=== PATIENT | male | born 1960 | race Caucasian/White ===

== ENCOUNTER 2016-10-28 10:22 | Emergency (ER) | payer MEDICARE ==
[~2016-10-28] VITALS: Ht 180.3 cm; Wt 66.1 kg
[~2016-10-28 10:22] MED LIST: ASCORBIC ACID100 MG PO; AUGMENTIN875 MG PO; B COMPLETE1 EACH PO; CENTRUM SILVER1 EAC3 PO; GINKGO BILOBA120 MG PO; GINSENG100 M2 PO; SPIRIVA RESPIMAT4 GM IH; VENTOLIN HFA18 GM IH; VITAMIN D400 UNIT PO; VITAMIN E100 UNIT PO
[2016-10-28 11:13] LABS: BASOPHIL COUNT 0.1 K/uL (0-0.1); EOSINOPHIL (%) 3.2 % (0-5); EOSINOPHIL COUNT 0.5 K/uL (0-0.3); HEMATOCRIT 53.1 % (38.0-50.0); IMMATURE GRANULOCYTE (%) 0.5 % (0.0-0.7); IMMATURE GRANULOCYTE COUNT 0.1 K/uL; INSTRUMENT ABS NEUTROPHIL CT 11.2 K/uL; LYMPHOCYTE COUNT 2.1 K/uL (1.0-2.8); MCH 29.3 PG (29.0-34.0); MCHC 32.8 G/DL (30.0-36.0); MCV 89.5 FL (86-99); MEAN PLAT.VOLUME 9.5 uM^3 (9.0-12.4); MONOCYTE (%) 7.9 % (3-12); MONOCYTE COUNT 1.2 K/uL (0-0.8); NEUTROPHIL (%) 73.9 % (45-76); NEUTROPHIL COUNT 11.2 K/uL (1.8-6.4); PLATELET COUNT 343 K/uL (156-360); RBC DIS.WIDTH-CV 12.5 % (11.8-14.6); RBC DIS.WIDTH-SD 41.4 % (39-53); RED BLOOD COUNT 5.93 M/uL (4.00-5.50); WHITE BLOOD COUNT 15.1 K/uL (4.1-10.2)
[2016-10-28 11:25] LABS: CHLORIDE 105 mEq/L (99-109); SODIUM 143 mEq/L (136-147)
[2016-10-28 11:27] LABS: GLUCOSE 99 mg/dL (70-99)
[2016-10-28 11:28] LABS: ANION GAP 12 MEQ/L (2-14)
[2016-10-28 11:29] LABS: TOTAL BILIRUBIN 0.3 mg/dL (0.0-1.0)
[2016-10-28 11:30] LABS: ALKALINE PHOSPHATASE 73 IU/L (3-129)
[2016-10-28 11:31] LABS: GFR ESTIMATE (CALCULATED) > 59 mL/min/
[2016-10-28 11:32] LABS: UREA NITROGEN (BUN) 12 mg/dL (9-23)
[2016-10-28] MEDS ORDERED: TYLENOL WITH C1 EACH PO (15:05)
[2016-10-28 15:13] VITALS: BP 118/69
[2016-11-01] MEDS ORDERED: ULTRAM50 MG PO (09:42)
[2016-11-01] MEDS ORDERED: TYLENOL EXTRA500 MG PO (09:44)
== END 2016-10-28 15:14 | disposition home or self-care (01) ==
LOC: EME 10:22
PROVIDERS: Emergency Medicine
DX: R91.8 Other nonspecific abnormal finding of lung field (principal); C78.01 Secondary malignant neoplasm of right lung; C78.02 Secondary malignant neoplasm of left lung; R22.1 Localized swelling, mass and lump, neck; J44.9 Chronic obstructive pulmonary disease, unspecified; F17.200 Nicotine dependence, unspecified, uncomplicated
CPT/HCPCS: 71020; 71250; 80053; 85025; 99281; 99284

== ENCOUNTER 2016-11-07 08:36 | Day surgery (SDC) | payer MEDICARE ==
[~2016-11-07] VITALS: Ht 180.3 cm; Wt 65.0 kg
[~2016-11-07 08:36] MED LIST changes: +TYLENOL EXTRA500 MG PO; +TYLENOL WITH C1 EACH PO; +ULTRAM50 MG PO
[2016-11-07 09:04] VITALS: BP 143/85
[2016-11-07 10:05] LABS: BASOPHIL COUNT 0.1 K/uL (0-0.1); EOSINOPHIL (%) 5.4 % (0-5); EOSINOPHIL COUNT 0.8 K/uL (0-0.3); IMMATURE GRANULOCYTE (%) 0.3 % (0.0-0.7); IMMATURE GRANULOCYTE COUNT 0.1 K/uL; LYMPHOCYTE COUNT 2.3 K/uL (1.0-2.8); MCH 29.1 PG (29.0-34.0); MCHC 32.9 G/DL (30.0-36.0); MCV 88.6 FL (86-99); MEAN PLAT.VOLUME 9.8 uM^3 (9.0-12.4); MONOCYTE (%) 8.8 % (3-12); MONOCYTE COUNT 1.3 K/uL (0-0.8); NEUTROPHIL (%) 69.3 % (45-76); PLATELET COUNT 422 K/uL (156-360); RBC DIS.WIDTH-CV 12.4 % (11.8-14.6); RBC DIS.WIDTH-SD 41.1 % (39-53); RED BLOOD COUNT 5.87 M/uL (4.00-5.50); WHITE BLOOD COUNT 14.4 K/uL (4.1-10.2)
[2016-11-07 10:17] LABS: ALKALINE PHOSPHATASE 60 IU/L (3-129); ANION GAP 10 MEQ/L (2-14); CHLORIDE 105 MEQ/L (99-109); GFR ESTIMATE (CALCULATED) > 59 mL/min/; GLUCOSE 90 mg/dL (70-99); POTASSIUM 3.9 MEQ/L (3.7-5.4); SAMPLE HEMOLYSIS CHECK 0; SAMPLE ICTERIC CHECK 0; SAMPLE LIPEMIA CHECK 0; SODIUM 141 MEQ/L (136-147); TOTAL BILIRUBIN 0.4 MG/DL (0.0-1.0); UREA NITROGEN (BUN) 13 mg/dL (9-23)
[2016-11-07 11:40] LABS: INTER. NORMALIZED RATIO 1.1; PROTHROMBIN TIME 10.8 (9.2-11.2); PTT 36.2 (25-32)
[2016-11-07] MEDS ORDERED: HYDROCODON-ACE1 EAC7 PO (12:19)
[2016-11-07] MEDS ORDERED: COLACE100 MG PO (12:19)
[2016-11-07 13:03] LABS: POINT-OF-CARE METER ID UU14174212; POINT-OF-CARE USER ID ADMSLT55
[2016-11-07 15:00] VITALS: BP 130/70
[2016-11-07 15:42] VITALS: BP 137/71
== END 2016-11-07 15:50 | disposition home or self-care (01) ==
LOC: SDC 08:36
PROVIDERS: Thoracic Surgery (Cardiothoracic Vascular Surgery)
PROC: 07B10ZX Excision of Right Neck Lymphatic, Open Approach, Diagnostic (ICD-10-PCS; principal; 2016-11-07)
DX: C77.0 Secondary and unspecified malignant neoplasm of lymph nodes of head, face and neck (principal); F17.210 Nicotine dependence, cigarettes, uncomplicated; J44.9 Chronic obstructive pulmonary disease, unspecified; Z87.898 Personal history of other specified conditions; Z82.49 Family history of ischemic heart disease and other diseases of the circulatory system
CPT/HCPCS: 80053; 82948; 85025; 85610; 85730; 88305; 88341 TC; 88342 TC; J0690; J1100; J1170; J2250; J2405; J2765; J3010

== ENCOUNTER 2016-12-18 11:03 | Inpatient (IN) | payer MEDICARE ==
[~2016-12-18] VITALS: Ht 180.3 cm; Wt 62.6 kg
[~2016-12-18 11:03] MED LIST changes: +COLACE100 MG PO; +HYDROCODON-ACE1 EAC7 PO
[2016-12-18 11:55] LABS: HEMATOCRIT 56.2 % (38.0-50.0); MCH 28.7 PG (29.0-34.0); MCHC 32.2 G/DL (30.0-36.0); MCV 89.1 FL (86-99); MEAN PLAT.VOLUME 9.4 uM^3 (9.0-12.4); PLATELET COUNT 393 K/uL (156-360); RBC DIS.WIDTH-CV 12.7 % (11.8-14.6); RBC DIS.WIDTH-SD 41.3 % (39-53); RED BLOOD COUNT 6.31 M/uL (4.00-5.50); WHITE BLOOD COUNT 6.1 K/uL (4.1-10.2)
[2016-12-18 11:56] LABS: CHLORIDE 102 mEq/L (99-109); POTASSIUM 4.3 mEq/L (3.7-5.4); SODIUM 140 mEq/L (136-147)
[2016-12-18 11:58] LABS: GLUCOSE 99 mg/dL (70-99)
[2016-12-18 11:59] LABS: ANION GAP 15 MEQ/L (2-14)
[2016-12-18 12:01] LABS: GFR ESTIMATE (CALCULATED) > 59 mL/min/
[2016-12-18 12:02] LABS: UREA NITROGEN (BUN) 11 mg/dL (9-23)
[2016-12-18 12:06] LABS: TROP-I INTERPRETATION NEGATIVE; TROPONIN-I 0.04 ng/mL (0.0-0.30)
[2016-12-18] MEDS ORDERED: COLACE100 MG PO (12:44)
[2016-12-18] MEDS ORDERED: NICODERM CQ1 EAC2 TD (12:44)
[2016-12-18] MEDS ORDERED: XARELTO20 MG PO (12:45)
[2016-12-18] MEDS ORDERED: DUONEB 2.5-0.5 M3 ML AEROSOL (12:45)
[2016-12-18] MEDS ORDERED: XANAX0.5 MG PO (12:51)
[2016-12-18] MEDS ORDERED: ARYMO ER15 MG PO (12:52)
[2016-12-18] MEDS ORDERED: SPIRIVA1 INHALATI IH (12:53)
[2016-12-18] MEDS ORDERED: CEFDINIR300 MG PO (12:54)
[2016-12-18] MEDS ORDERED: LO-DOSE ASPIRIN81 M2 PO (12:55)
[2016-12-18] MEDS ORDERED: ZITHROMAX250 MG PO (12:55)
[2016-12-18] MEDS ORDERED: HYDROCODONE CO120 ML PO (12:56)
[2016-12-18 20:18] VITALS: BP 109/52
[2016-12-18 20:45] VITALS: BP 119/73
[2016-12-18 21:00] VITALS: BP 105/50
[2016-12-18 22:00] VITALS: BP 97/62
[2016-12-18 22:12] LABS: METH RESISTANT S AUREUS PCR NEGATIVE (NEGATIVE)
[2016-12-18 22:15] LABS: PROBE CHECK PASS; SPECIMEN PROCESSING CONTROL PASS
[2016-12-18 22:49] LABS: BASE EXCESS -1.6 mEq/L (-3 to +3); BICARBONATE 21.9 mEq/L (22-26); CARBOXY HGB 2.2 % (0-5); METHEMOGLOBIN 1.8 % (0-1.5); PCO2 33 mm Hg (35-45); PO2 52 mm Hg (80-100); pH 7.43 (7.35-7.45)
[2016-12-18 22:50] LABS: COMMENTS - BLOOD GASES A+C+; DEVICE NCHIGH FLOW; O2 FLOW 8 L/MIN; SITE LR; TOTAL RESP RATE 18 resp/min
[2016-12-18 23:00] VITALS: BP 111/61
[2016-12-19] VITALS (22 sets, daily range): BP systolic 84–130; BP diastolic 41–77
[2016-12-19 04:52] LABS: EOSINOPHIL (%) 1.9 % (0-5); EOSINOPHIL COUNT 0.4 K/uL (0-0.3); HEMATOCRIT 43.2 % (38.0-50.0); IMMATURE GRANULOCYTE (%) 0.6 % (0.0-0.7); IMMATURE GRANULOCYTE COUNT 0.1 K/uL; INSTRUMENT ABS NEUTROPHIL CT 14.8 K/uL; LYMPHOCYTE COUNT 1.8 K/uL (1.0-2.8); MCH 28.6 PG (29.0-34.0); MCHC 32.6 G/DL (30.0-36.0); MCV 87.6 FL (86-99); MEAN PLAT.VOLUME 9.8 uM^3 (9.0-12.4); MONOCYTE (%) 9.4 % (3-12); MONOCYTE COUNT 1.8 K/uL (0-0.8); NEUTROPHIL (%) 78.3 % (45-76); NEUTROPHIL COUNT 14.8 K/uL (1.8-6.4); PLATELET COUNT 356 K/uL (156-360); RBC DIS.WIDTH-SD 41.6 % (39-53); RED BLOOD COUNT 4.93 M/uL (4.00-5.50); WHITE BLOOD COUNT 18.9 K/uL (4.1-10.2)
[2016-12-19 05:06] LABS: CHLORIDE 110 mEq/L (99-109); POTASSIUM 4.2 mEq/L (3.7-5.4); SODIUM 140 mEq/L (136-147)
[2016-12-19 05:08] LABS: GLUCOSE 93 mg/dL (70-99)
[2016-12-19 05:10] LABS: ANION GAP 8 MEQ/L (2-14)
[2016-12-19 05:12] LABS: GFR ESTIMATE (CALCULATED) > 59 mL/min/
[2016-12-19 05:13] LABS: UREA NITROGEN (BUN) 9 mg/dL (9-23)
[2016-12-20] VITALS (17 sets, daily range): BP systolic 94–155; BP diastolic 46–81
[2016-12-20 06:39] LABS: HEMATOCRIT 43.3 % (38.0-50.0); MCH 28.2 PG (29.0-34.0); MCHC 31.6 G/DL (30.0-36.0); MCV 89.3 FL (86-99); MEAN PLAT.VOLUME 10.2 uM^3 (9.0-12.4); PLATELET COUNT 356 K/uL (156-360); RBC DIS.WIDTH-CV 12.7 % (11.8-14.6); RED BLOOD COUNT 4.85 M/uL (4.00-5.50); WHITE BLOOD COUNT 17.7 K/uL (4.1-10.2)
[2016-12-20 06:50] LABS: ANION GAP 8 MEQ/L (2-14); CHLORIDE 110 MEQ/L (99-109); GFR ESTIMATE (CALCULATED) > 59 mL/min/; GLUCOSE 110 mg/dL (70-99); POTASSIUM 3.5 MEQ/L (3.7-5.4); SAMPLE HEMOLYSIS CHECK 0; SAMPLE ICTERIC CHECK 0; SAMPLE LIPEMIA CHECK 0; SODIUM 141 MEQ/L (136-147); UREA NITROGEN (BUN) 8 mg/dL (9-23)
[2016-12-20 08:20] LABS: MAGNESIUM 1.7 mg/dl (1.3-2.7)
[2016-12-21] VITALS: BP 99/70
[2016-12-21 04:00] VITALS: BP 83/54
== END 2016-12-21 06:36 | DRG 871 ==
LOC: EME → EDBD 11:03 → EME 11:03 → EDOF 18:31 → 4WEST 18:31
PROVIDERS: Emergency Medicine; Internal Medicine Nephrology; Internal Medicine Pulmonary Disease; Surgery Surgical Critical Care
PROC: 05HM33Z Insertion of Infusion Device into Right Internal Jugular Vein, Percutaneous Approach (ICD-10-PCS; principal; 2016-12-18)
DX: A41.9 Sepsis, unspecified organism (principal); J18.9 Pneumonia, unspecified organism; I95.9 Hypotension, unspecified; C80.1 Malignant (primary) neoplasm, unspecified; J90 Pleural effusion, not elsewhere classified; M54.5 Low back pain; R05 Cough; F17.200 Nicotine dependence, unspecified, uncomplicated; R00.0 Tachycardia, unspecified; C77.1 Secondary and unspecified malignant neoplasm of intrathoracic lymph nodes; J44.9 Chronic obstructive pulmonary disease, unspecified; I63.9 Cerebral infarction, unspecified; J96.91 Respiratory failure, unspecified with hypoxia; D68.59 Other primary thrombophilia; E87.6 Hypokalemia; E83.42 Hypomagnesemia; F41.9 Anxiety disorder, unspecified; D64.9 Anemia, unspecified; Z66 Do not resuscitate; Z79.82 Long term (current) use of aspirin; Z87.01 Personal history of pneumonia (recurrent)
CPT/HCPCS: 36600; 71010; 71275; 80048; 80202; 82803; 83605; 83735; 84100; 84484; 85025; 85027; 87040; 87070; 87205; 87641; 93005; 94640; 94640 76; 94799; 97530 GO; 99202; 99281; 99285; J1885; J2270; J2405; J2543; J3010; J3370; J3475; J7030; J7050